=== PATIENT | female | born 1985 | race Caucasian/White ===

== ENCOUNTER 2021-07-24 08:17 | Emergency (ER) | payer MEDICAID ==
[~2021-07-24] VITALS: Ht 167.6 cm; Wt 120.0 kg
[2021-07-24 08:25] VITALS: BP 138/90
== END 2021-07-24 08:48 | disposition home or self-care (01) ==
LOC: ER 08:17
DX: M79.18 Myalgia, other site (principal); R50.9 Fever, unspecified; Z20.822 Contact with and (suspected) exposure to COVID-19; J34.89 Other specified disorders of nose and nasal sinuses
CPT/HCPCS: 99283; C9803; U0003; U0005